=== PATIENT | male | born 2000 | race Asian ===

== ENCOUNTER 2018-05-26 15:59 | Emergency (ER) | payer BC ==
[2018-05-26] MEDS ORDERED: Bacitracin Zinc 1 Packet ONE ×2 (16:47→16:48)
--- NOTE | 2018-05-26 17:25 | RAD ---
RIGHT HAND TWO VIEWS: HISTORY: Injury. Right hand pain. FINDINGS: No acute fracture or dislocation is identified. There are tiny radiopaque densities in the soft tiss ues of the distal aspect of the 5th digit, suspicious for foreign bodies. POS: H
[2018-05-26] MEDS ORDERED: Adacel (T-DAP) 0.5 ML SYRINGE ONE (17:28)
== END 2018-05-26 17:44 | disposition home or self-care (01) ==
LOC: SCSER 15:59
DX: S67.21XA Crushing injury of right hand, initial encounter (principal); W23.0XXA Caught, crushed, jammed, or pinched between moving objects, initial encounter
CPT/HCPCS: 90471; 90715

== ENCOUNTER 2018-10-09 15:56 | Outpatient (CLI) | payer BC ==
--- NOTE | 2018-10-10 09:10 | MRI ---
MRI Lower Ext Jt Lt WO Con History: R 29.898 positive Shauna test Comparison: None. Findings: Medial meniscus: Intact Lateral meniscus: Intact Complete rupture proximal fibers anterior cruciate ligament. Posterior cruciate ligament is intact. M edial collateral ligament and lateral collateral ligaments are intact. The since mechanism: Quadriceps tendon, patella, and patellar tendon are intact. Cartilage: Patellofemoral compartment: Few high-grade cartilage fissures of the medial patellar facet without cardoza bcortical reactive marrow changes. A few high-grade cartilage fissures of the medial trochlea. Medial compartment: Intact Lateral compartment: Intact The MCL and LCL are intact. Arcuate ligament is intact. Muscles: Muscle signal and bulk is normal. Impression: 1. Full-thickness rupture proximal fibers anterior cruciate ligament. 2. A few high-grade cartilage fissures, near full-thickness, of the medial patellar facet without sub cortical reactive marrow changes. 3. Intact menisci.
== END 2018-10-09 15:57 | disposition home or self-care (01) ==
LOC: TBSIIMAG 15:56
PROVIDERS: ATTEND Pediatrics Sports Medicine
DX: R29.898 Other symptoms and signs involving the musculoskeletal system (principal); M25.362 Other instability, left knee; S83.8X2A Sprain of other specified parts of left knee, initial encounter